=== PATIENT | male | born 1940 | race Caucasian/White ===

== ENCOUNTER 2021-04-18 15:53 | Outpatient (CLI) | payer MEDICARE, OTHER, SELFPAY ==
[2021-04-18 16:24] LABS: Basophils Percent Auto 0.6 % (0.2-1.2); Eosinophils Absolute Auto 0.3 K/mm3 (0-0.3); Hematocrit 45.3 % (42.0-52.0); Hemoglobin 15.1 g/dL (14.0-18.0); Immature Granulocyte Absolute 0.01 K/mm3 (0.00-0.031); Immature Granulocyte Percent A 0.1 % (0-0.5); Lymphocytes Absolute Auto 1.35 K/mm3 (0.9-3.2); Lymphocytes Percent Auto 19.7 % (18.3-44.2); Mean Corpuscular HGB Conc 33.3 g/dl (32-36); Mean Platelet Volume 10.2 fl (7.4-10.4); Monocytes Absolute Auto 0.5 K/mm3 (0.1-0.6); Monocytes Percent Auto 6.9 % (2.6-8.5); Neutrophils Absolute Auto 4.6 K/mm3 (1.3-6.7); Neutrophils Percent Auto 67.7 % (45.5-73.1); Platelet Count Result 188 k/mm3 (150-375); Red Blood Count 4.44 M/mm3 (4.6-6.20); Red Cell Distribution Width 13.3 % (11.5-14.5); White Blood Count 6.8 K/mm3 (4.5-10.0)
[2021-04-18 16:53] LABS: Alanine Aminotransferase 27 U/L (4-50); Albumin Level 4.2 g/dL (3.5-5.1); Alkaline Phosphatase 73 U/L (38-126); Anion Gap 10 mmol/L (8-16); Aspartate Amino Transferase 32 U/L (17-59); Bilirubin,Total 0.9 mg/dL (0.2-1.3); Blood Urea Nitrogen 18 mg/dL (9-20); Calcium 9.6 mg/dL (8.4-10.2); Carbon Dioxide 28 mmol/L (22-30); Chloride 104 mmol/L (98-107); Cholesterol 121 mg/dL (0-200); Estimated Glomerular Filt Rate > 60; Glucose 108 mg/dL (65-110); HDL Direct 28 mg/dL; Potassium 4.3 mmol/L (3.4-5.0); Sodium 142 mmol/L (137-145); Triglycerides 274 mg/dL (<150)
[2021-04-18 17:04] LABS: LDL Cholesterol Direct 58 mg/dL
[2021-04-18 17:24] LABS: Prostate Specific Antigen 1.1 ng/mL (< OR = 4.0)
[2021-04-18 18:23] LABS: Hemoglobin A1C 5.6 % (<5.7)
== END 2021-04-18 15:54 | disposition home or self-care (01) ==
PROVIDERS: Visit Provider Internal Medicine
DX: R73.03 Prediabetes (principal); I25.10 Atherosclerotic heart disease of native coronary artery without angina pectoris; E78.00 Pure hypercholesterolemia, unspecified; I10 Essential (primary) hypertension; G62.9 Polyneuropathy, unspecified; Z12.5 Encounter for screening for malignant neoplasm of prostate
CPT/HCPCS: 36415; 80053; 80061; 83036; 84153; 85025; G0103

== ENCOUNTER 2022-07-19 09:45 | Outpatient (RCR) | payer MEDICARE, OTHER, SELFPAY ==
[2022-04-24 11:53] VITALS: PULSE 65
== END 2022-07-19 18:14 | disposition home or self-care (01) ==
LOC: ANHCPREHAB 09:45
DX: Z95.5 Presence of coronary angioplasty implant and graft (principal)
CPT/HCPCS: 93798

== ENCOUNTER 2023-02-19 12:06 | Emergency (ER) | payer MEDICARE, OTHER, SELFPAY ==
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
[2023-02-19 13:16] VITALS: BP 130/77; PULSE 66; RESP 14; TEMP 36.6; O2SAT 98
[2023-02-19] MEDS: NAPROXEN 500 MG TABLET PO (17:50)
[2023-02-19] MEDS: ACETAMINOPHEN 500 MG TABLET 1000 MG PO (17:50)
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
[2023-02-19 18:26] VITALS: BP 124/80; PULSE 76; RESP 16; TEMP 36.8; O2SAT 98
== END 2023-02-19 18:28 | disposition home or self-care (01) ==
PROVIDERS: Emergency Provider Nurse Practitioner Family
DX: S42.021A Displaced fracture of shaft of right clavicle, initial encounter for closed fracture (principal); V18.0XXA Pedal cycle driver injured in noncollision transport accident in nontraffic accident, initial encounter
CPT/HCPCS: 73000; 73030; 99284; A4565; A9270